=== PATIENT | male | born 1965 | race Caucasian/White ===

== ENCOUNTER 2021-10-31 13:11 | Emergency (ER) | payer BC ==
[~2021-10-31] VITALS: Ht 182.9 cm; Wt 97.7 kg
[2021-10-31 13:34] VITALS: TEMP 98.3
[2021-10-31 14:23] LABS: BASO % 0.2 % (0.0-2.0); EOS % 0.2 % (0.0-4.0); GRAN # 6.6 K/mm3 (1.4-6.5); GRAN % 76.5 % (42.2-75.2); HEMATOCRIT 41.1 % (42.0-52.0); HEMOGLOBIN 14.5 g/dl (13.5-18.0); LYMPH # 1.4 K/mm3 (1.2-3.4); MEAN CELL VOLUME 85 fl (80.0-100.0); MEAN CORPUSCULAR HEMOGLOBIN 30 pg (27-31); MEAN CORPUSCULAR HGB CONC 35 g/dl (33.0-37.0); MEAN PLATELET VOLUME 9.3 fl (7.4-10.4); MONO # 0.6 K/mm3 (0.1-0.6); MONO % 6.9 % (1.7-9.3); PLATELET COUNT 255 K/mm3 (130-400); RED BLOOD COUNT 4.81 M/mm3 (4.20-5.60); REDCELL DISTRIBUTION WIDTH-CV 11.9 % (11.5-14.5)
[2021-10-31 14:51] LABS: ALBUMIN 4.3 gm/dL (3.5-5.0); BILIRUBIN,TOTAL 0.7 mg/dL (0.2-1.2); CALCIUM 9.8 mg/dL (8.4-10.2); CREATININE, serum 1.07 mg/dL (0.72-1.25); POTASSIUM 3.8 mmol/L (3.5-4.5); TOTAL PROTEIN 7.3 gm/dL (6.2-8.1)
[2021-10-31 14:52] LABS: C-REACTIVE PROTEIN 0.15 mg/dL (0.00-0.50)
[2021-10-31 16:33] VITALS: BP 129/82; PULSE 66
== END 2021-10-31 16:45 | disposition home or self-care (01) ==
LOC: COL.ER 13:11
PROVIDERS: Emergency Medicine
DX: I88.0 Nonspecific mesenteric lymphadenitis (principal); E10.9 Type 1 diabetes mellitus without complications; Z96.41 Presence of insulin pump (external) (internal); Z86.16 Personal history of COVID-19
CPT/HCPCS: J1885; J2405; J7030; Q9967

== ENCOUNTER 2023-06-13 01:38 | Emergency (ER) | payer BC ==
[~2023-06-13] VITALS: Ht 182.9 cm; Wt 95.5 kg
[2023-06-13 01:42] VITALS: BP 162/95; TEMP 98.4
[2023-06-13 02:34] VITALS: PULSE 62
== END 2023-06-13 02:35 | disposition home or self-care (01) ==
LOC: COL.ER 01:38
DX: H20.9 Unspecified iridocyclitis (principal)